=== PATIENT | female | born 2000 | race Caucasian/White ===

== ENCOUNTER → 2023-11-14 16:49 | Outpatient (REF) | payer BC, SELFPAY | LOC: MRI 3T 16:49 | PROVIDERS: ATTENDING PHYSICIAN Surgery; FAMILY PHYSICIAN Physician Assistant Medical | DX: R92.2 Inconclusive mammogram (principal); Z15.01 Genetic susceptibility to malignant neoplasm of breast | CPT/HCPCS: 77049; A9585 ==

== ENCOUNTER → 2023-11-25 15:06 | Outpatient (REF) | payer BC, SELFPAY | LOC: WDC 15:06 | PROVIDERS: ATTENDING PHYSICIAN Surgery; FAMILY PHYSICIAN Physician Assistant Medical | DX: R92.8 Other abnormal and inconclusive findings on diagnostic imaging of breast (principal) | CPT/HCPCS: 76642 ==

== ENCOUNTER → 2024-07-01 15:58 | Outpatient (REF) | payer BC, SELFPAY | LOC: MRI 3T 15:58 | PROVIDERS: ATTENDING PHYSICIAN Surgery; FAMILY PHYSICIAN Physician Assistant Medical | DX: R92.8 Other abnormal and inconclusive findings on diagnostic imaging of breast (principal) | CPT/HCPCS: 77049; A9585 ==

== ENCOUNTER → 2024-08-30 11:06 | Outpatient (REF) | payer BC, SELFPAY | LOC: WDC 11:06 | PROVIDERS: ATTENDING PHYSICIAN Surgery; FAMILY PHYSICIAN Physician Assistant Medical | DX: Z15.09 Genetic susceptibility to other malignant neoplasm (principal); R92.8 Other abnormal and inconclusive findings on diagnostic imaging of breast | CPT/HCPCS: 76641 ==